=== PATIENT | male | born 1955 | race Caucasian/White ===

== ENCOUNTER → 2016-02-17 | Outpatient (CLI) | payer BC ==
[~2016-02-17] MED LIST: EPA FISH OIL1000 MG PO; MULTIPLE VITAMI1 TAB PO; OCUVITE1 TA1 PO; VITAMIN B121000 MC2 SL; ZANTAC150 MG PO
[2016-02-17 10:00] VITALS: BP 108/66
== END ==
LOC: AMSURD 09:20
DX: Z00.00 Encounter for general adult medical examination without abnormal findings (principal); E78.2 Mixed hyperlipidemia